=== PATIENT | male | born 1995 | race Caucasian/White ===

== ENCOUNTER 2018-07-10 14:02 | Emergency (ER) | payer OTHER ==
[~2018-07-10] VITALS: Ht 175.3 cm; Wt 145.2 kg
[~2018-07-10 14:02] MED LIST: IBUPROFEN 800800 M1 PO; PENICILLIN V P500 MG PO
[2018-07-10 14:15] VITALS: BP 126/65
[2018-07-10] MEDS ORDERED: TESSALON PERLE100 MG PO (14:31)
[2018-07-10] MEDS ORDERED: PROMETHAZINE V120 ML PO (14:31)
[2018-07-10] MEDS ORDERED: ZPAK PO (14:31)
== END 2018-07-10 14:35 | disposition home or self-care (01) ==
LOC: M.ERS 14:02
DX: J02.9 Acute pharyngitis, unspecified (principal)

== ENCOUNTER 2018-09-25 12:09 | Emergency (ER) | payer OTHER ==
[~2018-09-25] VITALS: Ht 175.3 cm; Wt 113.4 kg
[~2018-09-25 12:09] MED LIST changes: +PROMETHAZINE V120 ML PO; +TESSALON PERLE100 MG PO; +ZPAK PO
[2018-09-25] MEDS ORDERED: ERYTHROMYCIN E3.5 G3 OPHTHALMIC (13:19)
[2018-09-25 13:34] VITALS: BP 117/78
== END 2018-09-25 13:34 | disposition home or self-care (01) ==
LOC: M.ERS 12:09
DX: S05.01XA Injury of conjunctiva and corneal abrasion without foreign body, right eye, initial encounter (principal); X58.XXXA Exposure to other specified factors, initial encounter; Y93.89 Activity, other specified; Y92.89 Other specified places as the place of occurrence of the external cause; Y99.8 Other external cause status